=== PATIENT | female | born 1965 | race Caucasian/White ===

== ENCOUNTER → 2016-07-22 | Outpatient (CLI) | payer BC ==
[~2016-07-22] MED LIST: HYDR12.55 PO
--- NOTE | 2016-07-22 16:52 | MAMMOGRAPHY REPORT ---
BILATERAL DIGITAL SCREENING MAMMOGRAM TOMOSYNTHESIS WITH CAD: 07/22/2016 CLINICAL HISTORY: Routine screening. Patient has no complaints. TECHNIQUE: Breast tomosynthesis in addition to standard 2D mammography was performed. Current study was also evaluated with a Computer Aided Detection (CAD) system. COMPARISON: Comparison is made to exams dated: 05/06/2015 mammogram and 02/27/2009 mammogram - [facility]. BREAST COMPOSITION: The tissue of both breasts is almost entirely fatty. FINDINGS: No suspicious masses, calcifications, or areas of architectural distortion are noted in e ither breast. There has been no significant interval change compared to prior exams. IMPRESSION: ACR BI-RADS CATEGORY 1: NEGATIVE There is no mammographic evidence of malignancy. A 1 year screening mammogram is recommended. The p atient will receive written notification of the results. Approximately 10% of breast cancers are not detected with mammography. A negative mammographic repor t should not delay biopsy if a clinically suggestive mass is present. [place] Michelle M.D. ah/:07/22/2016 15:37:31 Sheep Rancher: Cassandra Marshall RT(R)(M), [facility] letter sent: Normal 1/2 BI-RADS Code: ACR BI-RADS Category 1: Negative
== END | disposition home or self-care (01) ==
LOC: C.MAMM 15:12
PROVIDERS: ATTEND Nurse Practitioner Family
DX: Z12.31 Encounter for screening mammogram for malignant neoplasm of breast (principal)

== ENCOUNTER → 2016-09-29 | Outpatient (CLI) | payer BC | END | disposition home or self-care (01) | LOC: C.PAPS 10:17 | PROVIDERS: ATTEND Obstetrics & Gynecology | DX: Z01.419 Encounter for gynecological examination (general) (routine) without abnormal findings (principal) ==

== ENCOUNTER → 2017-07-14 | Outpatient (CLI) | payer OTHER ==
[~2017-07-14] MED LIST changes: +OPTIRAY 320 IV PRN
--- NOTE | 2017-07-14 18:01 | DIAGNOSTIC IMAGING REPORT ---
ABD/PELVIS IV AND ORAL CONT CLINICAL HISTORY: 51 years-old Female presenting with new onset left sided abdominal pain with h/o diverticulitis. TECHNIQUE: Multidetector CT of the abdomen and pelvis was performed after the administration of oral and intravenous contrast. IV contrast: 93 mL of Optiray 320. A dose lowering technique was used consistent with the principles of ALARA (as low as reasonably achievable). COMPARISON: None. CT DOSE (mGy.cm): The estimated cumulative dose is 676.40 mGy.cm. FINDINGS: Welder/Fabricator topogram: Unremarkable. Lung bases: Lungs and pleural spaces clear. Normal heart size. No pericardial or pleural effusion. Liver: Normal morphology. Subcentimeter hypodense well-defined lesion in the right hepatic lobe likely hepatic cyst or hamartoma. Patent hepatic vasculature. Biliary: No intrahepatic or extrahepatic biliary ductal dilatation. Normal gallbladder. Pancreas: Normal. Spleen: Lobular contour the spleen, nonspecific. Adrenal glands: Normal. Kidneys and ureters: Normal. No hydronephrosis. Bladder: Incompletely evaluated secondary to underdistention. Pelvic organs: Uterus and ovaries normal. Bowel: Diverticulosis of the sigmoid and descending colon. Focal colonic wall thickening and pericolonic inflammatory change at 3 sites along the descending colon both proximally (series 3 image 111), in the midportion significantly distally (series 3 image 186), and most severe at the junction with the sigmoid colon (series 3 image 258). Adjacent peritoneal thickening and trace fluid in the left paracolic gutter. Scattered colonic diverticula elsewhere in the colon. The appendix is normal. No bowel obstruction. Several loops of small bowel approach the inflamed descending colon and may be tethered to this region. Peritoneal cavity: Trace free fluid in the left paracolic gutter as mentioned. No pneumoperitoneum. No evidence of abscess. Lymph nodes: No enlarged lymph nodes in the abdomen or pelvis. Vasculature: Aorta and IVC patent and normal in caliber. Abdominal wall: Normal. Musculoskeletal: Degenerative changes of the spine. IMPRESSION: 1. Findings consistent with acute uncomplicated multifocal diverticulitis in the descending colon, most severe at the junction of the descending and sigmoid colon. No CT evidence of perforation or of abscess. Electronically signed by: Judah Hernandez M.D. 07/14/2017 5:59 PM Dictated Date/Time: 07/14/2017 5:54 PM
== END | disposition home or self-care (01) ==
LOC: C.CTS 14:55
PROVIDERS: ATTEND Family Medicine
DX: R10.9 Unspecified abdominal pain (principal); K57.32 Diverticulitis of large intestine without perforation or abscess without bleeding

== ENCOUNTER → 2017-07-25 | Outpatient (CLI) | payer OTHER ==
[~2017-07-25] MED LIST changes: -OPTIRAY 320 IV PRN
--- NOTE | 2017-07-26 12:45 | MAMMOGRAPHY REPORT ---
BILATERAL DIGITAL SCREENING MAMMOGRAM TOMOSYNTHESIS WITH CAD: 07/25/2017 CLINICAL HISTORY: Routine screening. Patient has no complaints. TECHNIQUE: Breast tomosynthesis in addition to standard 2D mammography was performed. Current study was also evaluated with a Computer Aided Detection (CAD) system. COMPARISON: Comparison is made to exams dated: 07/22/2016 mammogram, 05/06/2015 mammogram, and mammogram - [facility]. BREAST COMPOSITION: The tissue of both breasts is almost entirely fatty. FINDINGS: A 9 mm focal asymmetry in the upper inner quadrant of the right breast is stable in size da ting back to at least 02/27/2009, therefore likely benign. There is a stable intramammary lymph node in the right upper outer quadrant. No suspicious mass, architectural distortion or cluster of microc alcifications is seen. IMPRESSION: ACR BI-RADS CATEGORY 1: NEGATIVE There is no mammographic evidence of malignancy. A 1 year screening mammogram is recommended. The pa tient will receive written notification of the results. Approximately 10% of breast cancers are not detected with mammography. A negative mammographic report should not delay biopsy if a clinically suggestive mass is present. Becka Call M.D. ay/:07/25/2017 15:42:58 Elastic Yarn Twister Helper: Cassandra ORNELAS(R)(M), [facility] letter sent: Normal 1/2 BI-RADS Code: ACR BI-RADS Category 1: Negative
== END | disposition home or self-care (01) ==
LOC: C.MAMM 15:17
PROVIDERS: ATTEND Nurse Practitioner Family
DX: Z12.31 Encounter for screening mammogram for malignant neoplasm of breast (principal)